=== PATIENT | male | born 1995 | race Caucasian/White ===

== ENCOUNTER → 2017-07-10 | Outpatient (CLI) | payer BC | END | disposition home or self-care (01) | LOC: C.RDSM 17:18 | PROVIDERS: ATTEND Orthopaedic Surgery Sports Medicine | DX: S93.622A Sprain of tarsometatarsal ligament of left foot, initial encounter (principal); X58.XXXA Exposure to other specified factors, initial encounter; Z91.048 Other nonmedicinal substance allergy status ==

== ENCOUNTER → 2017-08-29 | Outpatient (CLI) | payer BC | END | disposition home or self-care (01) | LOC: C.RDSM 12:56 | PROVIDERS: ATTEND Orthopaedic Surgery Sports Medicine | DX: S93.629A Sprain of tarsometatarsal ligament of unspecified foot, initial encounter (principal); X58.XXXA Exposure to other specified factors, initial encounter ==